=== PATIENT | male | born 1960 | race Caucasian/White ===

== ENCOUNTER 2017-01-08 10:28 | Inpatient (IN) ==
[~2017-01-08 10:28] MED LIST: LIDOCAINE 1% (10mg/ml) 10mL MDV ID ONE; LR 1,000 ML IV SCH
[2017-01-08 10:44] VITALS: BMI 29.0
[2017-01-08] MEDS ORDERED: HYDROMORPHONE 2 MG/ML INJECTION IVP PRN (11:13)
[2017-01-08] MEDS ORDERED: LIDOCAINE 1% (10mg/ml) 2mL INJ PF SDV ID ONE (11:53)
[2017-01-08] MEDS ORDERED: LACRI-LUBE EYE OINT 3.5gm ONE (11:55)
--- NOTE | 2017-01-08 12:05 | Anesthesia Preoperative Report ---
Anesthesia Preoperative Record - Date and Time Date: 01/08/17 Preoperative Diagnosis: Bronchoscopy R84.6 Proposed Procedure: Bronchoscopy with Bx NPO Since Date: 01/08/17 NPO Since Time: 12:02 Allergies/Adverse Reactions: Allergies Allergy/AdvReac Type Severity Reaction Status Date / Time Penicillins Allergy Severe "ALMOST Verified 01/08/17 11:30 KILLED ME CHILD" - Vital Signs Vital Signs: Temperature 98.8 F 01/08/17 10:40 Pulse Rate 103 H 01/08/17 11:37 Respiratory Rate 14 01/08/17 10:40 Blood Pressure 114/66 01/08/17 10:40 Pulse Oximetry 91 01/08/17 10:40 Oxygen Delivery Method Room Air Height and Weight: Height 5 ft 8.5 in Weight 87.8 kg Body Mass Index 29.0 - Medications Inpatient Medications: Current Medications Hydromorphone HCl (Dilaudid) 0.5 mg IVP O PRN PRN Reason: Pain Last Admin: 01/08/17 11:18 Dose: 0.5 mg Lactated Ringer's (Lactated Ringers) 1,000 mls @ 50 mls/hr IV .Q20H RUSSEL Last Admin: 01/08/17 11:10 Dose: 50 mls/hr Lidocaine HCl (Xylocaine-Mpf 1% Vial) 1 mg ID O ONE Stop: 01/08/17 11:54 Last Admin: 01/08/17 11:57 Dose: 1 mg Home Medications: Home Medications Medication Instructions Recorded Confirmed Type amitriptyline 50 mg tablet 75 mg PO HS #0 12/31/16 01/08/17 History omeprazole 20 mg capsule,delayed 20 mg PO DAILY cap 12/31/16 01/08/17 History release oxycodone 5 mg tablet 5 - 15 mg PO Q6H PRN tab 12/31/16 01/08/17 History zolpidem 5 mg tablet 5 mg PO HS 12/31/16 01/08/17 History methadone 10 mg/mL oral concentrate 10 mg PO Q6H PRN 01/07/17 01/08/17 History Is Patient on Beta Greta?: No - Medical History Respiratory: Reports: Orthopnea, Other (Left lung collapse 12/22) Cardiovascular: Reports: Hypertension Gastrointestional: Reports: Hepatitis (HEP-C), Cirrhosis (ETOH), Gastroesophageal Reflux Disease (well controlled with meds) Neuro/Musculoskeletal: Reports: Back Problems (throughout neck and back chronic pain) Renal/Endocrine: DENIES: Diabetes Mellitus Type 1, Diabetes Mellitus Type 2, Renal Failure, Dialysis, Thyroid Disease, Weight Loss, Weight Gain, Other Other History: DENIES: Anesthesia Reactions, Now, Blood Transfusions, Chemotherapy , Cancer, Hemophilia, Malignant Hyperthermia, Sickle Cell Disease, Other - Surgical History Respiratory Surgery/Treatments: Reports: Chest Surgery (US guided Thoracentesis) GI Surgery/Treatments: Reports: Other (LIVER BX) Musculoskeletal Surgery/Tx: Reports: Other (R ARM below ELBOW AMPUTATION) Anesthesia Reactions: None Hx Family Anesthesia Reaction: No History of Motion Sickness: No - Social History Smoking Status: Current every day smoker packs per day: 1 (1PPD x 40yrs. down to about 4-5 ciggs/day) Second Hand Exposure: Yes Substance Use Type: former substance user, opiates (methadone/oxycodone chronic pain.) - Pertinent Findings EKG Rhythm: Sinus Tachycardia - Physical Exam Respiratory Exam: Present: wheezing (left lower lobe), rales (Right lung clears with coughing), decreased breath sounds-L (throughout) Cardiovascular Exam: Present: regular rate and rhythm, no murmur - Airway Assessment Mallampati Score: II TMD: 3 Fingerbreadths Neck Extension: good Teeth: upper dentures (unable to remove. discussed possibility of dental damage with laryngoscopy), lower dentures Overall Assessment: may be difficult mask vent (bearded) - ASA ASA Score: 3 - Plan Anesthesia: General Inhalation Gases - Discussion Discussion: Discussed risks/options/alternatives of anesthesia and questions answered. Patient consents. Nursing pain assessment noted. Emphasis placed on risk of remaining on ventilator after procedure due to poor lung fcn currently. Pt verbalizes understanding and agrees to proceed with prescribed plan. Present for Discussion: spouse Attestation Statement: Prior to the delivery of any anesthetic medication, I examined the patient, developed the plan, obtained the patient's consent and discussed the risk and benefits of the procedure with the patient/guardian. - Additional Information Seen by Anesthesia: Yes
[2017-01-08] MEDS ORDERED: MIDAZOLAM 2mg/2ml INJECTION IVP ONE (12:08)
[2017-01-08] MEDS ORDERED: FentaNYL 100 MCG/2 ML INJECTION IVP PRN (12:25)
[2017-01-08] MEDS ORDERED: ONDANSETRON 4 MG/2 ML INJECTION ONE (13:07)
[2017-01-08] MEDS ORDERED: ROCURONIUM 50 MG/5 ML INJECTION IVP ONE (13:07)
[2017-01-08] MEDS ORDERED: PROPOFOL 20 ML ONE (13:07)
[2017-01-08] MEDS ORDERED: GLYCOPYRROLATE 0.4 MG/2 ML INJECTION ONE (13:32)
--- NOTE | 2017-01-08 13:50 | General Surgery Procedure Note ---
Date of Procedure: 01/08/17 Surgeon: Kelley Sales Representative Education Courses: Kelley Postoperative Diagnosis: Malignant left pleural effusion Procedure: Flexible bronchoscopy with washings and biopsies. Estimated Blood Loss: See Anesthesia Record.
--- NOTE | 2017-01-08 13:53 | Discharge Instructions ---
Discharge Plan - Med Rec/Dispo Prescriptions: Continue lisinopril 20 mg-hydrochlorothiazide 12.5 mg tablet 1 tab PO .qd #90 tab potassium chloride ER 10 mEq tablet,extended release 10 meq PO .qd #90 tab amitriptyline 50 mg tablet 75 mg PO HS #0 omeprazole 20 mg capsule,delayed release 20 mg PO DAILY cap zolpidem 5 mg tablet 5 mg PO HS oxycodone 5 mg tablet 5 - 15 mg PO Q6H PRN tab PRN Reason: pain No Action methadone 10 mg/mL oral concentrate 10 mg PO Q6H PRN PRN Reason: withdrawal symptoms
--- NOTE | 2017-01-08 15:31 | Anesthesia Postoperative Note ---
- Date and Time Date: 01/08/17 Time: 15:28 - Status Patient Participated in Evaluation: Patient Participated in Person Vital Signs: Temperature 99.0 F 01/08/17 14:25 Pulse Rate 98 01/08/17 15:10 Respiratory Rate 17 01/08/17 15:10 Blood Pressure 116/60 01/08/17 15:10 Pulse Oximetry 91 01/08/17 15:10 Oxygen Delivery Method Nasal Cannula Oxygen Flow Rate 3 Respiratory Function: Airway Patent Cardiovascular Function: Regular Pulse EKG Rhythm: Normal Sinus Rhythm Mental Status: Alert and Oriented Pain Intensity: 2 (headache) Unable to Assess Pain Due to: Patient Sleeping Hydration: Taking PO Fluids Complications During Recover: None Apparent - Follow-Up Instructions Instructions: Per Surgeon
[2017-01-08] MEDS ORDERED: ONDANSETRON 4 MG/2 ML INJECTION IVP PRN (16:41)
[2017-01-08] MEDS: LR 1,000 ML IV SCH ×2 (16:45→17:30)
[2017-01-08] MEDS: Oxycodone *IR* 5 MG TABLET PO PRN ×3 (17:12→21:43)
[2017-01-08] MEDS: LISINOPRIL/HCTZ 20/12.5 MG TABLET PO SCH (17:43)
[2017-01-08] MEDS: ALBUTEROL 2.5mg/3ml (0.083%) NEB AEROSOL PRN (19:33)
[2017-01-08] MEDS: ZOLPIDEM 5 MG TABLET PO SCH (21:43)
[2017-01-08] MEDS: AMITRIPTYLINE 50 MG TABLET PO SCH (21:44)
[2017-01-09] MEDS: ALBUTEROL 2.5mg/3ml (0.083%) NEB AEROSOL PRN ×2 (07:10→11:02)
[2017-01-09] MEDS: MORPHINE SULFATE 10 MG SYRINGE IVP PRN ×6 (07:18→20:26)
[2017-01-09] MEDS ORDERED: ALBUTEROL/IPRATROPIUM 2.5mg-0.5mg/3ml NEB IPPB PRN (07:39)
[2017-01-09] MEDS: OMEPRAZOLE 20 MG CAPSULE PO SCH (08:55)
[2017-01-09] MEDS: LISINOPRIL/HCTZ 20/12.5 MG TABLET PO SCH (08:56)
--- NOTE | 2017-01-09 09:07 | Operative Note ---
DATE OF OPERATION 01/08/2017 PREOPERATIVE DIAGNOSES 1. Malignant left pleural effusion with atypical cells present highly suspicious for non-small cell carcinoma. 2. Left upper lobe collapse which could be due to an obscured left hilar mass or endobronchial mass lesion demonstrated on 12/31/2016 CT scan of the chest. POSTOPERATIVE DIAGNOSES 1. Malignant left pleural effusion with atypical cells present highly suspicious for non-small cell carcinoma. 2. Left upper lobe collapse which could be due to an obscured left hilar mass or endobronchial mass lesion demonstrated on 12/31/2016 CT scan of the chest. OPERATION Flexible bronchoscopy with washings and biopsies. SURGEON Willard Benson MD ANESTHESIA General ASA CLASS 3 FINDINGS The distal trachea appeared normal. The john appeared normal. The right- sided bronchial tree appeared normal. There was severe narrowing of the left upper lobe bronchus just beyond the left upper lobe bronchial orifice. There was no obvious exophytic tumor lesion at this area. There was narrowing of the left upper lobe bronchial orifice and some nodularity of the mucosa but no obvious exophytic endobronchial tumor lesion. There also appeared to be some narrowing at the left lower lobe bronchial segments just beyond the left lower lobe bronchial orifice. There was no obvious exophytic endobronchial tumor lesion at the left lower lobe. DESCRIPTION OF OPERATION The patient was brought to the cystoscopy room. The patient was placed in supine position on the operating table in the cystoscopy room. General anesthesia was satisfactorily induced. The patient was intubated with endotracheal intubation by the nurse regulatory affairs manager. An adapter was placed at the end of the endotracheal tube to allow the flexible bronchoscope to pass through the straight upper part while anesthesia was being administered to the patient through a side port. The Olympus flexible bronchoscope was used. The bronchoscope was introduced into the endotracheal tube. The distal trachea was examined. The john was examined. The right-sided bronchial tree was examined. The left-sided bronchial tree was then examined. The endoscopic biopsy forceps was used to obtain biopsies of mucosa at the left upper lobe. The endoscopic biopsy specimens were submitted for study by the pathologist. Washings were then performed at the left upper lobe. Sterile normal saline was instilled into the left upper lobe and then aspirated back by gentle suction to provide washing specimens. The endoscopic biopsy forceps was then used to obtain biopsies of mucosa at the left lower lobe. The left lower lobe mucosal biopsy specimens were placed in a container and submitted for study by the pathologist. Bronchial washings were then performed at the left lower lobe. Sterile normal saline was instilled into the left lower lobe and then aspirated back by gentle suction to provide washing specimens. All the washing specimens were submitted to the pathologist for cytology studies. There was minimal bleeding during all these biopsies. Hemostasis was satisfactory at all the biopsies. The right-sided bronchial tree was again examined and all secretions and mucus and washing fluid was aspirated from the right-sided bronchial tree. The flexible bronchoscope was withdrawn out through the endotracheal tube and removed from the patient. The patient tolerated the operation well. The patient was transferred from the operating room to the recovery room in satisfactory condition. CRISTINE
[2017-01-09] MEDS: ALBUTEROL/IPRATROPIUM 2.5mg-0.5mg/3ml NEB IPPB SCH ×4 (11:02→20:58)
[2017-01-09] MEDS: LR 1,000 ML IV SCH ×3 (13:09→20:36)
--- NOTE | 2017-01-09 13:36 | Anesthesia Preoperative Report ---
Anesthesia Preoperative Record - Date and Time Date: 01/09/17 Preoperative Diagnosis: Bronchoscopy R84.6 NPO Since Date: 01/08/17 NPO Since Time: 00:00 Allergies/Adverse Reactions: Allergies Allergy/AdvReac Type Severity Reaction Status Date / Time Penicillins Allergy Severe "ALMOST Verified 01/08/17 11:30 KILLED ME CHILD" - Vital Signs Vital Signs: Temperature 98.7 F 01/09/17 13:08 Pulse Rate 99 01/09/17 13:08 Respiratory Rate 18 01/09/17 13:08 Blood Pressure 107/90 H 01/09/17 13:08 Pulse Oximetry 93 01/09/17 13:08 Oxygen Delivery Method Nasal Cannula Oxygen Flow Rate 6 Fraction of Inspired Oxygen 2 Height and Weight: Height 1.74 m Weight 87.8 kg Body Mass Index 29.0 - Medications Inpatient Medications: Current Medications Albuterol Sulfate (Proventil Neb (0.083%)) 2.5 mg AEROSOL Q4H PRN PRN Reason: Shortness of air/wheezing Last Admin: 01/09/17 11:02 Dose: 2.5 mg Albuterol/Ipratropium (Duoneb) 3 ml IPPB Q4HR [facility] Last Admin: 01/09/17 11:02 Dose: 3 ml Albuterol/Ipratropium (Duoneb) 3 ml IPPB PRN PRN Amitriptyline HCl (Elavil) 75 mg PO HS [facility] Last Admin: 01/08/17 21:44 Dose: 75 mg Lisinopril/HCTZ (Prinzide 20/12.5) 1 tab PO DAILY [facility] Last Admin: 01/09/17 08:56 Dose: Not Given Lactated Ringer's (Lactated Ringers) 1,000 mls @ 50 mls/hr IV .Q20H [facility] Last Admin: 01/09/17 13:09 Dose: Not Given Lactated Ringer's (Lactated Ringers) 1,000 mls @ 50 mls/hr IV .Q20H [facility] Last Admin: 01/09/17 13:10 Dose: 50 mls/hr Morphine Sulfate (Morphine Sulfate Inj) 2 - 5 mg IVP Q1H PRN PRN Reason: Pain Last Admin: 01/09/17 12:21 Dose: 3 mg Omeprazole (Prilosec) 20 mg PO DAILY [facility] Last Admin: 01/09/17 08:55 Dose: Not Given Ondansetron HCl (Zofran) 4 - 8 mg IVP Q6H PRN PRN Reason: Nausea &/or vomiting Oxycodone HCl (Roxicodone *Ir*) 5 - 10 mg PO Q3H PRN PRN Reason: Pain Last Admin: 01/08/17 21:43 Dose: 5 mg Potassium Chloride (K-Dur) 10 meq PO WB [facility] Last Admin: 01/09/17 08:55 Dose: Not Given Zolpidem Tartrate (Ambien) 5 mg PO HS [facility] Last Admin: 01/08/17 21:43 Dose: 5 mg Home Medications: Home Medications Medication Instructions Recorded Confirmed Type amitriptyline 50 mg tablet 75 mg PO HS #0 12/31/16 01/08/17 History omeprazole 20 mg capsule,delayed 20 mg PO DAILY cap 12/31/16 01/08/17 History release oxycodone 5 mg tablet 5 - 15 mg PO Q6H PRN tab 12/31/16 01/08/17 History zolpidem 5 mg tablet 5 mg PO HS 12/31/16 01/08/17 History methadone 10 mg/mL oral concentrate 10 mg PO Q6H PRN 01/07/17 01/08/17 History Is Patient on Beta Greta?: No - Medical History Respiratory: Reports: Orthopnea, Other (left lung collapse 12/22) Cardiovascular: Reports: Hypertension Gastrointestional: Reports: Hepatitis (Hep C, Cirrhosis ), Gastroesophageal Reflux Disease (controlled with meds) Neuro/Musculoskeletal: Reports: Back Problems (throughout neck and back, chronic ) - Surgical History Respiratory Surgery/Treatments: Reports: Chest Surgery (US guided Thoracentesis) GI Surgery/Treatments: Reports: Other (LIVER BX) Surgery/Treatment: DENIES: Dialysis Musculoskeletal Surgery/Tx: Reports: Other (R ARM below ELBOW AMPUTATION) Anesthesia Reactions: None Hx Family Anesthesia Reaction: No History of Motion Sickness: No - Social History Smoking Status: Current every day smoker Hx Chewing Tobacco Use: No Second Hand Exposure: Yes Substance Use Type: former substance user, opiates (methadone/oxycodone chronic pain.) - Pertinent Findings EKG Rhythm: Normal Sinus Rhythm - Physical Exam Respiratory Exam: Present: wheezing (left lower lobe), rales (Right lung clears with coughing), decreased breath sounds-L (throughout) Cardiovascular Exam: Present: regular rate and rhythm, no murmur - Airway Assessment Mallampati Score: II TMD: 3 Fingerbreadths Neck Extension: good Teeth: upper dentures (unable to remove. discussed possibility of dental damage with laryngoscopy), lower dentures Overall Assessment: may be difficult mask vent (bearded) - ASA ASA Score: 3 - Plan Anesthesia: General TIVA, General Inhalation Gases - Discussion Discussion: Discussed risks/options/alternatives of anesthesia and questions answered. Patient consents. Nursing pain assessment noted. Present for Discussion: spouse, family member Attestation Statement: Prior to the delivery of any anesthetic medication, I examined the patient, developed the plan, obtained the patient's consent and discussed the risk and benefits of the procedure with the patient/guardian. - Additional Information Seen by Anesthesia: Yes
[2017-01-09] MEDS ORDERED: FentaNYL 100 MCG/2 ML INJECTION ONE (13:46)
[2017-01-09] MEDS ORDERED: MIDAZOLAM 2mg/2ml INJECTION ONE (13:47)
[2017-01-09] MEDS ORDERED: KETAMINE 500 MG/10 ML INJECTION ONE (13:47)
[2017-01-09] MEDS ORDERED: PROPOFOL 500 MG/50 ML VIAL IV ONE (13:47)
[2017-01-09] MEDS ORDERED: SALINE FLUSH *Sterile* 10 ML SYRINGE IV ONE (14:27)
[2017-01-09] MEDS ORDERED: BUPIVACAINE 0.25% (2.5mg/ml) PF 30ml INJECTION SQ ONE (14:28)
[2017-01-09] MEDS ORDERED: CLINDAMYCIN PB 600 MG/50 ML BAG IV SCH (14:30)
[2017-01-09] MEDS ORDERED: LIDOCAINE 1% (10mg/ml) 5ml PF SDV INFIL ONE (14:46)
--- NOTE | 2017-01-09 16:04 | Ultrasound Report ---
Indication: LEFT PLEURAL EFF PROCEDURE: US thoracentesis Encounter: Initial Comparison: January 01, 2017 Technique/findings/ Impression: Ultrasound guidance was used to assist Dr. Benson in performing a left-sided thoracentesis. Preprocedure imaging shows a large left pleural effusion. .
[2017-01-09] MEDS ORDERED: PROPOFOL 20 ML ONE (16:08)
[2017-01-09] MEDS ORDERED: BUPIVACAINE 0.25% (2.5mg/ml) PF 30ml INJECTION ONE (16:10)
--- NOTE | 2017-01-09 18:12 | Anesthesia Postoperative Note ---
- Date and Time Date: 01/09/17 Time: 18:10 - Status Patient Participated in Evaluation: Patient Participated in Person Vital Signs: Temperature 98.7 F 01/09/17 13:08 Pulse Rate 99 01/09/17 13:08 Respiratory Rate 20 01/09/17 17:35 Blood Pressure 107/90 H 01/09/17 13:08 Pulse Oximetry 93 01/09/17 13:08 Oxygen Delivery Method Nasal Cannula Oxygen Flow Rate 6 Fraction of Inspired Oxygen 2 Respiratory Function: Airway Patent Cardiovascular Function: Regular Pulse Mental Status: Alert and Oriented Pain Intensity: 0 Hydration: IV Infusing Complications During Recover: None Apparent Post Anesthesia Care Notes: patient admitted to ICU per surgeon. Patient remained on O2/FM. - Follow-Up Instructions Instructions: Per Surgeon
[2017-01-09] MEDS: Oxycodone *IR* 5 MG TABLET PO PRN (18:56)
[2017-01-09] MEDS: AMITRIPTYLINE 50 MG TABLET PO SCH ×2 (20:28→21:41)
[2017-01-09] MEDS: ZOLPIDEM 5 MG TABLET PO SCH (21:40)
[2017-01-10] MEDS: Oxycodone *IR* 5 MG TABLET PO PRN ×6 (00:38→21:10)
[2017-01-10] MEDS: ALBUTEROL/IPRATROPIUM 2.5mg-0.5mg/3ml NEB IPPB SCH ×6 (01:02→20:43)
[2017-01-10] MEDS: MORPHINE SULFATE 10 MG SYRINGE IVP PRN ×6 (02:31→23:36)
[2017-01-10] MEDS: LISINOPRIL/HCTZ 20/12.5 MG TABLET PO SCH (10:50)
[2017-01-10] MEDS: OMEPRAZOLE 20 MG CAPSULE PO SCH (10:50)
--- NOTE | 2017-01-10 13:16 | Progress Note ---
DATE 01/10/2017 HISTORY When the patient did go to the recovery room following his operation yesterday, he did require oxygen administration at 15 liters per minute by nonrebreathing mask to maintain an adequate oxygen saturation level. The patient was given an IPPB with aerosol breathing treatment in the recovery room. The patient did cough up a large mucous plug with this breathing treatment and this did seem to improve his oxygenation after that. Because of the pulmonary status of the patient, he was transferred from the recovery room to the intensive care unit. The patient has continued to receive IPPB with albuterol breathing treatments in the intensive care unit. His oxygen has been able to be weaned down to 3 liters per minute by nasal cannula at this time. He currently does have an oxygen saturation level of 100% on oxygen at 3 liters per minute by nasal cannula. The patient is continuing to cough up large amounts of mucus. He continues to receive respiratory therapy treatments as often as every 4 hours. The patient is having quite a bit of pain at the bone metastasis at the left scapula and the bone metastasis at the right hip. He is using intravenous morphine and oxycodone both in an attempt to get pain control. He does rate his pain as 10/10. PHYSICAL EXAMINATION VITAL SIGNS: Pulse is 96. Respiratory rate is 12. Blood pressure is 123/57. Oxygen saturation is 100% on oxygen at 3 liters per minute by nasal cannula at this time. CHEST: The patient does have bilateral wheezing. Breath sounds are markedly diminished on the left side. The PleurX pleural catheter insertion site wound at the left chest wall looks good. PATHOLOGY REPORT I did receive a pathology report on the endobronchial biopsies performed at the left upper lobe and left lower lobe at flexible bronchoscopy on 01/08/2017. These endobronchial biopsies show moderately differentiated adenocarcinoma at both the left upper lobe and the left lower lobe. There is a diagnostic comment that the pattern of immunoperoxidase staining is suggestive of a primary neoplasm arising from the upper gastrointestinal tract. The pathologist does recommend clinical correlation to determine the origin of the neoplasm. TREATMENT I did attempt to aspirate some more fluid from the left pleural space today using the PleurX catheter. A vacuum canister was used and only a few milliliters of fluid were able to be aspirated from the left pleural space this morning. Quite a bit of fluid had been aspirated out of the left pleural space at the time of operation late yesterday afternoon using the wall suction applied to the PleurX catheter. Apparently, there has not been a lot of reaccumulation of fluid in the pleural space since late yesterday afternoon. IMPRESSION 1. Moderately differentiated adenocarcinoma demonstrated by endobronchial biopsies performed at the left upper lobe and left lower lobe at flexible bronchoscopy on 01/08/2017. The pattern of immunoperoxidase staining of these biopsies is suggestive of a primary neoplasm arising from the upper gastrointestinal tract. 2. Malignant left pleural effusion. 3. Left upper lobe collapse at the lung demonstrated on a 12/31/2016 CT scan of the chest. The CT scan of the chest does show occlusion of the left upper lobe bronchus with a cutoff sign. There is also compressive atelectasis of most of the left lung demonstrated by the 12/31/2016 CT scan. 4. Metastatic disease involving the anterior mediastinum, right lung, left scapula and right fourth posterior rib demonstrated on 12/31/2016 CT scan of the chest. 5. Small bilateral adrenal metastases and lytic bone lesions in the pelvis suspicious for metastases demonstrated on CT scan of the abdomen and pelvis on 01/01/2017. No obvious primary malignancy is seen in the abdomen or pelvis on the CT scan. 6. Severe pain at the left shoulder and right hip probably associated with the lytic bone metastases at the left scapula and right hip demonstrated on the CT scans. 7. Anemia. 8. Cirrhosis. 9. Hepatitis C liver disease. 10. Nicotine dependence. 11. Chronic pain syndrome. 12. Insomnia. 13. Gastroesophageal reflux disease. 14. Hypertension. PLAN 1. Continue respiratory therapy treatments for the patient with IPPB and bronchodilators and incentive spirometry and oxygen administration to support the pulmonary status of the patient. 2. Continue pain control with intravenous morphine at this time. 3. Esophagogastroduodenoscopy to look for any upper gastrointestinal tract primary source for the moderately differentiated adenocarcinoma. The pattern of immunoperoxidase staining on endobronchial biopsies at the left upper lobe and left lower lobe as well as immunoperoxidase staining on the previous pleural fluid specimen from last week both suggest a primary neoplasm arising from the upper gastrointestinal tract. MTDD
[2017-01-10] MEDS: LR 1,000 ML IV SCH (16:36)
[2017-01-10] MEDS: ALBUTEROL 2.5mg/3ml (0.083%) NEB AEROSOL PRN (20:44)
[2017-01-10] MEDS: AMITRIPTYLINE 50 MG TABLET PO SCH (21:55)
[2017-01-10] MEDS: ZOLPIDEM 5 MG TABLET PO SCH (21:55)
[2017-01-11] MEDS: ALBUTEROL/IPRATROPIUM 2.5mg-0.5mg/3ml NEB IPPB SCH ×6 (00:13→21:21)
[2017-01-11] MEDS: ALBUTEROL 2.5mg/3ml (0.083%) NEB AEROSOL PRN ×3 (00:14→21:21)
[2017-01-11] MEDS: Oxycodone *IR* 5 MG TABLET PO PRN ×2 (01:44→19:54)
[2017-01-11] MEDS: MORPHINE SULFATE 10 MG SYRINGE IVP PRN ×7 (05:41→22:31)
[2017-01-11] MEDS: LR 1,000 ML IV SCH (07:29)
[2017-01-11] MEDS: OMEPRAZOLE 20 MG CAPSULE PO SCH (08:25)
[2017-01-11] MEDS: LISINOPRIL/HCTZ 20/12.5 MG TABLET PO SCH (08:25)
[2017-01-11] MEDS: NS 1,000 ML IV SCH (11:50)
--- NOTE | 2017-01-11 11:55 | Anesthesia Preoperative Report ---
Anesthesia Preoperative Record - Date and Time Date: 01/11/17 Preoperative Diagnosis: Bronchoscopy R84.6 NPO Since Date: 01/10/17 NPO Since Time: 00:00 Allergies/Adverse Reactions: Allergies Allergy/AdvReac Type Severity Reaction Status Date / Time Penicillins Allergy Severe "ALMOST Verified 01/08/17 11:30 KILLED ME CHILD" - Vital Signs Vital Signs: Temperature 98.1 F 01/11/17 08:05 Pulse Rate 97 01/11/17 09:15 Respiratory Rate 20 01/11/17 11:28 Blood Pressure 101/58 01/11/17 09:00 Pulse Oximetry 100 01/11/17 09:15 Oxygen Delivery Method Nasal Cannula Oxygen Flow Rate 4 Fraction of Inspired Oxygen 2 Height and Weight: Height 1.74 m Weight 84.4 kg Body Mass Index 29.0 - Medications Inpatient Medications: Current Medications Albuterol Sulfate (Proventil Neb (0.083%)) 2.5 mg AEROSOL Q4H PRN PRN Reason: Shortness of air/wheezing Last Admin: 01/11/17 04:36 Dose: 2.5 mg Albuterol/Ipratropium (Duoneb) 3 ml IPPB Q4HR RUSSEL Last Admin: 01/11/17 11:28 Dose: 3 ml Albuterol/Ipratropium (Duoneb) 3 ml IPPB PRN PRN Amitriptyline HCl (Elavil) 75 mg PO HS [facility] Last Admin: 01/10/17 21:55 Dose: 75 mg Lisinopril/HCTZ (Prinzide 20/12.5) 1 tab PO DAILY [facility] Last Admin: 01/11/17 08:25 Dose: 1 tab Azithromycin 500 mg/ Sodium (Chloride) 250 mls @ 167 mls/hr IV DAILY [facility] Ceftriaxone Sodium 1 g/ Sodium (Chloride) 100 mls @ 200 mls/hr IV DAILY [facility] Sodium Chloride (Normal Saline) 1,000 mls @ 40 mls/hr IV .Q24H [facility] Morphine Sulfate (Morphine Sulfate Inj) 2 - 5 mg IVP Q1H PRN PRN Reason: Pain Last Admin: 01/11/17 11:36 Dose: 5 mg Omeprazole (Prilosec) 20 mg PO DAILY [facility] Last Admin: 01/11/17 08:25 Dose: 20 mg Ondansetron HCl (Zofran) 4 - 8 mg IVP Q6H PRN PRN Reason: Nausea &/or vomiting Oxycodone HCl (Roxicodone *Ir*) 5 - 10 mg PO Q3H PRN PRN Reason: Pain Last Admin: 01/11/17 01:44 Dose: 10 mg Potassium Chloride (K-Dur) 10 meq PO WB RUSSEL Last Admin: 01/10/17 10:50 Dose: 10 meq Zolpidem Tartrate (Ambien) 5 mg PO HS [facility] Last Admin: 01/10/17 21:55 Dose: 5 mg Home Medications: Home Medications Medication Instructions Recorded Confirmed Type amitriptyline 50 mg tablet 75 mg PO HS #0 12/31/16 01/08/17 History omeprazole 20 mg capsule,delayed 20 mg PO DAILY cap 12/31/16 01/08/17 History release oxycodone 5 mg tablet 5 - 15 mg PO Q6H PRN tab 12/31/16 01/08/17 History zolpidem 5 mg tablet 5 mg PO HS 12/31/16 01/08/17 History methadone 10 mg/mL oral concentrate 10 mg PO Q6H PRN 01/07/17 01/08/17 History Is Patient on Beta Greta?: No - Medical History Respiratory: Reports: Other (orthopnea, history of lung collapse. ) Cardiovascular: Reports: Hypertension Gastrointestional: Reports: Hepatitis (Hep C) Neuro/Musculoskeletal: Reports: Back Problems - Surgical History Respiratory Surgery/Treatments: Reports: Chest Surgery (US guided Thoracentesis) GI Surgery/Treatments: Reports: Other (LIVER BX) Surgery/Treatment: DENIES: Dialysis Musculoskeletal Surgery/Tx: Reports: Other (R ARM below ELBOW AMPUTATION) Hx Family Anesthesia Reaction: No History of Motion Sickness: No - Social History Smoking Status: Current every day smoker Hx Chewing Tobacco Use: No Second Hand Exposure: Yes Substance Use Type: former substance user, opiates (methadone/oxycodone chronic pain.) - Pertinent Findings Laboratory: CBC and BMP 01/11/17 08:56 01/11/17 08:56 BMP 01/11/17 08:56 Sodium 125 L Potassium 4.8 Chloride 87 L Carbon Dioxide 30 BUN 12.0 Creatinine 0.6 L Glucose 109 Calcium 9.2 EKG Rhythm: Normal Sinus Rhythm - Physical Exam Respiratory Exam: Present: wheezing (left lower lobe), rales (Right lung clears with coughing), decreased breath sounds-L (throughout) Cardiovascular Exam: Present: regular rate and rhythm, no murmur - Airway Assessment Mallampati Score: II TMD: 3 Fingerbreadths Neck Extension: good Teeth: upper dentures (unable to remove. discussed possibility of dental damage with laryngoscopy), lower dentures Overall Assessment: may be difficult mask vent (bearded) - ASA ASA Score: 3, E - Plan Anesthesia: General TIVA, General Inhalation Gases, MAC - Discussion Discussion: Discussed risks/options/alternatives of anesthesia and questions answered. Patient consents. Nursing pain assessment noted. Present for Discussion: spouse, family member Attestation Statement: Prior to the delivery of any anesthetic medication, I examined the patient, developed the plan, obtained the patient's consent and discussed the risk and benefits of the procedure with the patient/guardian.
[2017-01-11] MEDS ORDERED: FentaNYL 100 MCG/2 ML INJECTION ONE (11:59)
[2017-01-11] MEDS ORDERED: MIDAZOLAM 2mg/2ml INJECTION ONE (12:00)
[2017-01-11] MEDS ORDERED: KETAMINE 500 MG/10 ML INJECTION ONE (12:00)
--- NOTE | 2017-01-11 12:16 | General Surgery Procedure Note ---
Date of Procedure: 01/11/17 Surgeon: Kelley Postoperative Diagnosis: Metastatic adenocarcinoma of uncertain origin Procedure: EGD Estimated Blood Loss: See Anesthesia Record.
--- NOTE | 2017-01-11 12:56 | Anesthesia Postoperative Note ---
- Date and Time Date: 01/11/17 Time: 12:55 - Status Patient Participated in Evaluation: Patient Participated in Person Vital Signs: Temperature 98.4 F 01/11/17 12:43 Pulse Rate 101 H 01/11/17 12:40 Respiratory Rate 14 01/11/17 12:40 Blood Pressure 117/59 01/11/17 12:40 Pulse Oximetry 94 01/11/17 12:40 Oxygen Delivery Method Nasal Cannula Oxygen Flow Rate 4 Fraction of Inspired Oxygen 2 Respiratory Function: Airway Patent, Regular Respirations Cardiovascular Function: Regular Pulse Mental Status: Alert and Oriented Pain Intensity: 0 Hydration: IV Infusing Complications During Recover: None Apparent - Follow-Up Instructions Instructions: Per Surgeon
[2017-01-11] MEDS: AZITHROMYCIN IV 500 MG in NS 250ml 250 ML IV SCH (13:39)
[2017-01-11] MEDS: CEFTRIAXONE 1 G in NS 100 ML IV SCH (15:24)
[2017-01-11] MEDS ORDERED: BENZOCAINE 20% SPRAY 0.5 ML MM ONE ×2 (16:28→16:30)
[2017-01-11] MEDS ORDERED: LIDOCAINE VISCOUS 2% ORAL LIQUID 15ml PO ONE (16:28)
[2017-01-11] MEDS: AMITRIPTYLINE 50 MG TABLET PO SCH (22:24)
[2017-01-11] MEDS: ZOLPIDEM 5 MG TABLET PO SCH (22:24)
[2017-01-12] MEDS: Oxycodone *IR* 5 MG TABLET PO PRN ×6 (00:06→19:22)
[2017-01-12] MEDS: ALBUTEROL/IPRATROPIUM 2.5mg-0.5mg/3ml NEB IPPB SCH ×4 (00:51→11:53)
[2017-01-12] MEDS: MORPHINE SULFATE 10 MG SYRINGE IVP PRN (02:37)
[2017-01-12] MEDS: ALBUTEROL 2.5mg/3ml (0.083%) NEB AEROSOL PRN (04:50)
--- NOTE | 2017-01-12 07:22 | Progress Note ---
DATE 01/11/2017 HISTORY The patient remains in the intensive care unit at this time. The patient continues to have quite a bit of pain at the lytic metastasis at the left scapula and right hip. The patient continues to require intravenous morphine for pain control. The patient continues to cough up quite a bit of mucus out of his lungs. He continues to receive IPPB with bronchodilator treatments. Oxygen saturation is 100% with the patient receiving oxygen at 4 liters per minute by nasal cannula at this time. PHYSICAL EXAMINATION VITAL SIGNS: Pulse is 97. Respiratory rate is 14. Blood pressure is 101/58. Oxygen saturation is 100% on oxygen at 4 liters per minute by nasal cannula. CHEST: The patient has some bilateral wheezing. Breath sounds are decreased on the left side. LABORATORY DATA White blood cell count is 14,300. Hemoglobin is 9.3. Hematocrit is 28.6. Serum sodium is 125. Serum chloride is 87. Serum potassium is 4.8. Serum creatinine is 0.9. IMPRESSION 1. Moderately differentiated adenocarcinoma demonstrated by endobronchial biopsies performed at the left upper lobe and left lower lobe at flexible bronchoscopy on 01/08/2017. The pattern of the immunoperoxidase staining of these biopsies is suggestive of a primary neoplasm arising from the upper gastrointestinal tract. 2. Malignant left pleural effusion. 3. Left upper lobe collapse at the lung demonstrated on a 12/31/2016 CT scan of the chest. The CT scan of the chest does show occlusion of the left upper lobe bronchus with a cutoff sign. There is also compressive atelectasis at most of the left lung demonstrated by the 12/31/2016 CT scan. 4. Metastatic disease involving the anterior mediastinum, right lung, left scapula and right fourth posterior rib demonstrated on 12/31/2016 CT scan of the chest. 5. Small bilateral adrenal metastases and lytic bone lesions in the pelvis suspicious for metastases demonstrated on CT scan of the abdomen and pelvis on 01/01/2017. No obvious primary malignancy is seen in the abdomen and pelvis on the CT scan. 6. Severe pain at the left shoulder and right hip probably associated with the lytic bone metastases at the left scapula and right hip demonstrated on the CT scans. 7. Anemia. 8. Leukocytosis. 90. Hyponatremia. 10. Cirrhosis. 11. Hepatitis C liver disease. 12. Nicotine dependence. 13. Chronic pain syndrome. 14. Insomnia. 15. Gastroesophageal reflux disease. 16. Hypertension. PLAN 1. Attempt to perform esophagogastroduodenoscopy on the patient today to evaluate the patient for a primary neoplasm arising from the upper gastrointestinal tract as suggested by immunoperoxidase staining of the endobronchial biopsy specimens. 2. Continue respiratory therapy treatments with IPPB and bronchodilators and incentive spirometry and oxygen administration to support the pulmonary status of the patient. 3. Continue pain control with intravenous morphine. 4. Change intravenous fluids and restrict fluids to correct hyponatremia. 5. Check sputum culture and start antibiotics for possible pneumonia in the portion of the left lung which is obstructed and affected with atelectasis. The patient could have some postobstructive pneumonia at this area accounting for his leukocytosis. 6. The patient had been scheduled to see Dr. Ramey as an outpatient at his office in [place] on 01/12/2017 for an oncology consultation. We will probably have Dr. Ramey see the patient here in the hospital this week for an oncology consultation. CRISTINE
--- NOTE | 2017-01-12 08:07 | Operative Note ---
DATE OF OPERATION 01/11/2017 PREOPERATIVE DIAGNOSES 1. Moderately differentiated adenocarcinoma demonstrated by endobronchial biopsies performed at the left upper lobe and left lower lobe at flexible bronchoscopy on 01/08/2017. The pattern of immunoperoxidase staining of these biopsies is suggestive of a primary neoplasm arising from the upper gastrointestinal tract. 2. Malignant left pleural effusion with the cytology report showing clusters of atypical cells highly suspicious for non-small cell carcinoma, possible upper GI tract primary. 3. Metastatic disease involving the anterior mediastinum, right lung, left scapula and right fourth posterior rib demonstrated on 12/31/2016 CT scan of the chest. 4. Small bilateral adrenal metastases and lytic bone lesions in the pelvis suspicious for metastases demonstrated on a CT scan of the abdomen and pelvis on 01/01/2017. No obvious primary malignancy is seen in the abdomen or pelvis on the CT scan. POSTOPERATIVE DIAGNOSES 1. Moderately differentiated adenocarcinoma demonstrated by endobronchial biopsies performed at the left upper lobe and left lower lobe at flexible bronchoscopy on 01/08/2017. The pattern of immunoperoxidase staining of these biopsies is suggestive of a primary neoplasm arising from the upper gastrointestinal tract. 2. Malignant left pleural effusion with the cytology report showing clusters of atypical cells highly suspicious for non-small cell carcinoma, possible upper GI tract primary. 3. Metastatic disease involving the anterior mediastinum, right lung, left scapula and right fourth posterior rib demonstrated on 12/31/2016 CT scan of the chest. 4. Small bilateral adrenal metastases and lytic bone lesions in the pelvis suspicious for metastases demonstrated on a CT scan of the abdomen and pelvis on 01/01/2017. No obvious primary malignancy is seen in the abdomen or pelvis on the CT scan. 5. Retained solid food contents in the stomach at esophagogastroduodenoscopy today. OPERATION Esophagogastroduodenoscopy. SURGEON Dr. Benson [facility] [place] ASA CLASS 3 FINDINGS Mucosa at the esophagus appeared completely normal everywhere. No evidence of any primary neoplasm at the esophagus was present. Duodenal mucosa appeared normal everywhere. There was no evidence of any primary neoplasm at the duodenum. The gastric mucosa which was visualized all appeared normal. The patient did have quite a bit of solid retained food contents in the stomach. The patient had been NPO for over 12 hours before the procedure. This did prevent all of the gastric mucosa from being visualized. Mucosa around the gastroesophageal junction was normal. Mucosa around the pylorus was normal. Most of the rest of the gastric mucosa was able to be visualized but not all of it was able to be visualized because of the retained solid food contents in the stomach. The pylorus was wide open. There was no evidence of any mechanical gastric outlet obstruction. There were no retained food particles in the duodenum. This did suggest that there was not a more distal source of obstruction. The presence of the solid food in the stomach with the wide open pylorus suggested that this food was retained due to more of a gastroparesis. No primary neoplasm of the upper gastrointestinal tract was visualized today.. DESCRIPTION OF OPERATION The patient was brought to one of the operating rooms. The patient was kept in his intensive care unit bed as he was brought into the operating room. He was kept in the intensive care unit bed throughout the procedure. Topical anesthesia was achieved at the oropharynx in the usual manner. The patient was placed in left lateral recumbent position in his intensive care unit bed in the operating room. The patient was premedicated with intravenous sedation medication administered by the nurse aviation electrical technician. The Olympus upper GI endoscope was used. The upper GI endoscope was introduced into the esophagus. The upper GI endoscope was advanced down through the esophagus and into the stomach. The upper GI endoscope was able to be advanced down through the stomach past all of the solid food down to the level of the pylorus. The tip of the upper GI endoscope was advanced through the pylorus and advanced down through the duodenum. The tip was advanced down through the duodenum beyond the level of the duodenal bulb. The upper GI endoscope was then withdrawn back out through the duodenum and through the pylorus back into the stomach. The stomach was examined further. The upper GI endoscope was retroflexed and the gastroesophageal junction was viewed from below. The upper GI endoscope was straightened out. As much of the gastric mucosa as possible was visualized. The upper GI endoscope was then withdrawn out through the stomach and esophagus and removed from the patient. The findings throughout the procedure were as described above. The patient did continue to receive intravenous sedation medication administered by the nurse aviation electrical technician throughout the operation. The patient did tolerate the operation well. The patient was transferred from the operating room back to the intensive care unit in stable condition. CRISTINE
[2017-01-12] MEDS: CEFTRIAXONE 1 G in NS 100 ML IV SCH (09:36)
[2017-01-12] MEDS: LISINOPRIL/HCTZ 20/12.5 MG TABLET PO SCH (09:36)
[2017-01-12] MEDS: OMEPRAZOLE 20 MG CAPSULE PO SCH (09:36)
--- NOTE | 2017-01-12 10:26 | Operative Note ---
DATE OF OPERATION 01/09/2017 PREOPERATIVE DIAGNOSES 1. Malignant left pleural effusion with atypical cells present highly suspicious for non-small cell carcinoma. 2. 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 POSTOPERATIVE DIAGNOSES 1. Malignant left pleural effusion with atypical cells present highly suspicious for non-small cell carcinoma. 2. 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 OPERATION 1. Placement of left PleurX pleural catheter. 2. Implantation of PowerPort vascular access device. SURGEON Dr. Benson [facility] CLASS 3 DESCRIPTION OF OPERATION The patient was placed in Evans's position on the operating room table. The ultrasound machine was used by the golf technician to examine the left pleural cavity. The left pleural effusion was visualized with examination with the ultrasound machine. The ultrasound machine was used to select a site for placement of the left PleurX pleural catheter. A site for guidewire insertion was selected. This site was at the posterior axillary line at about the 6th or 7th intercostal space. This area was marked on the skin with a skin marker pen. The patient was premedicated with intravenous sedation medication administered by the nurse tree shear operator. The left lateral chest wall was prepped with ChloraPrep solution. The patient was kept in Evans's position. Sterile drapes were placed. The guidewire insertion site incision was marked on the skin with a skin marker pen. The guidewire insertion site incision was infiltrated with bupivacaine 0.25% without epinephrine to achieve local anesthesia. A 2 cm long transversely oriented incision was made at the guidewire insertion site incision at the posterior axillary line at about the 6th or 7th intercostal space. This incision was extended down through the subcutaneous tissue. The subcutaneous tissue, intercostal muscles and parietal pleura were all infiltrated with additional local anesthetic at this time. A needle and an introducer catheter were inserted through the chest wall at the guidewire insertion site incision. The needle and introducer catheter were inserted over the superior margin of a rib. Pleural effusion fluid was able to be aspirated out through the needle and introducer catheter with a syringe. The metal needle was removed. The introducer catheter was left in place. A guidewire was then inserted through the introducer catheter into the left pleural space. The guidewire was able to be inserted easily and without any resistance. The introducer catheter was then removed. The guidewire was left in place at the guidewire insertion site incision. A second short incision was then made inferior and anterior to the guidewire insertion site. This was the catheter exit site incision. This area was first infiltrated with local anesthetic. A 1-cm long incision was made at the catheter exit site. This was in a location 6 cm anterior and inferior to the guidewire insertion site incision. Subcutaneous tissue between the guidewire insertion site incision and the catheter exit site incision was infiltrated with 1% Xylocaine without epinephrine. The fenestrated end of the catheter was then attached to a tunneler. The tunneler and the fenestrated end of the catheter were then passed subcutaneously from the catheter exit site incision to the guidewire insertion site incision. The tunneler and the fenestrated end of the catheter were brought out through the guidewire insertion site incision. This was continued until the polyester cuff of the catheter was in a position within the tunnel between the catheter exit site incision and the guidewire insertion site incision. The tunneler was disconnected from the catheter. The insertion site was then dilated over the guidewire using a #12-[place] dilator. The 16-[place] peel-away introducer sheath with dilator was then passed over the guidewire into the pleural cavity. The guidewire and the dilator were removed as a unit from the 16-[place] peel-away introducer sheath. The 16-[place] peel-away introducer sheath was left in place. The fenestrated end of the PleurX pleural catheter was introduced into the peel-away sheath and introduced into the left pleural cavity. The peel-away sheath was removed, keeping the pleural catheter in place. It was made certain during this time that all fenestrations of the pleural catheter were well within the pleural cavity. The polyester cuff was shifted even closer to the guidewire insertion site incision at this time to make sure that all of the fenestrations of the pleural catheter were within the pleural cavity. This did place the final position of the polyester cuff in this particular case, closer to the guidewire insertion site incision than the catheter exit site incision. The guidewire insertion site incision was then closed. Subcutaneous tissue at the guidewire insertion site incision was closed with a series of simple interrupted stitches using 3-0 Vicryl suture. Skin margins at the guidewire insertion site incision were then reapproximated with a series of interrupted subcuticular stitches using 4-0 Vicryl suture. The catheter exit site was closed around the catheter with 2-0 silk suture. The 2-0 silk suture was then used to secure the catheter to the skin adjacent to the catheter exit site. Dermabond was applied over the guidewire insertion site incision which had been closed with the 4-0 Vicryl subcuticular stitches. Wall suction was then connected to the PleurX pleural catheter and some additional left pleural effusion fluid from the left pleural cavity was removed with wall suction. A foam dressing was then placed on the skin beneath the PleurX pleural catheter. A 4 x 4 gauze was placed over the PleurX pleural catheter and the foam dressing. A Tegaderm dressing was then applied over the PleurX pleural catheter dressings. The patient did continue to receive intravenous sedation medication administered by the nurse tree shear operator throughout this procedure as needed to maintain patient comfort. The drapes which had been placed for this procedure were then removed. The patient was then changed from Evans's position to supine position on the operating table. The patient did continue to receive intravenous sedation medication administered by the nurse tree shear operator. The implantation of the PowerPort vascular access device portion of the operation was then performed. The suprasternal notch area, the left infraclavicular area, the left supraclavicular area, the left side of the neck, the left shoulder, the right supraclavicular area, the right infraclavicular area, the right side of the neck and the right shoulder were all prepped and draped in routine sterile fashion. An ultrasound device was used to examine the right carotid artery and right internal jugular vein. Bupivacaine 0.25% without epinephrine was infiltrated into the skin and subcutaneous tissue at the right side of the neck. A small incision was made at this area. A percutaneous venipuncture of the right internal jugular vein was then performed with ultrasound guidance. There was a good return of dark red nonpulsatile blood. A flexible guidewire was passed through the needle and through the right internal jugular vein. The position of the flexible guidewire within the superior vena cava was confirmed with fluoroscopy with the C-arm at this time. Additional bupivacaine was infiltrated at the site where the flexible guidewire entered the skin at the right side of the neck. A small pocket was dissected out beneath the platysma muscle and fascia at the small incision at the right side of the neck. Bupivacaine was infiltrated into the skin and subcutaneous tissue at an obliquely oriented incision at the right infraclavicular area. An obliquely oriented incision was made at this area and extended down through the underlying tissue. Bupivacaine was infiltrated into tissue at this area. A subcutaneous pocket was then made beneath the inferior margin of the right infraclavicular incision. The implantable port was flushed with heparinized saline solution. The port was placed into the pocket which had been created for it between the pectoralis fascia and subcutaneous tissue at the right infraclavicular area. Two simple interrupted stitches of 0 Prolene suture were placed at each of the four corner suture rings to secure the port down to the underlying pectoralis fascia. The catheter was flushed with heparinized saline solution. A hemostat was inserted at the right infraclavicular wound and passed over the clavicle and beneath the subcutaneous tissue to come out at the incision at the right side of the neck. The hemostat was used to grasp the end of the catheter and pull it through the tunnel from the incision at the right side of the neck down to the incision at the right infraclavicular area. A vessel dilator and sheath introducer were then advanced over the flexible guidewire into the right internal jugular vein. The vessel dilator and guidewire were then removed from the peel-away sheath. The end of the catheter was introduced into the peel-away sheath. The catheter easily passed through the peel-away sheath down into the superior vena cava. The peel-away sheath was removed. The position of the catheter was checked with the C-arm. The position of the catheter was adjusted until the tip of the catheter was in the superior vena cava near the junction of the superior vena cava and right atrium. Excess catheter at the distal end of the catheter was excised and discarded. The catheter was connected to the stem of the port at the right infraclavicular subcutaneous pocket. The catheter lock was advanced onto the stem of the port to lock the catheter in place on the stem of the port. With the catheter connected to the port, additional heparinized saline was injected through the port and through the catheter. The position of the catheter was again checked with the C-arm. The position of the catheter appeared be satisfactory at this time. Subcutaneous tissue was closed at the obliquely oriented incision at the right infraclavicular area in two layers with a continuous simple [id number] stitch using 3-0 Vicryl suture. Skin margins were then reapproximated at the obliquely oriented right infraclavicular incision with a continuous subcuticular stitch using 4-0 Vicryl suture. Skin margins were then reapproximated at the short incision at the right side of the neck with a series of interrupted subcuticular stitches using 4-0 Vicryl suture. Benzoin and 1/2-inch wide Steri-Strips were applied to the incisions at the right side of the neck and at the right infraclavicular area. Sterile dressings were applied to the incisions. The patient did continue to receive intravenous sedation medication administered by the nurse tree shear operator throughout the implantation of a PowerPort vascular access device portion of the procedure. The patient did appear to tolerate procedure well. The patient was transferred from the operating room to the recovery room in stable condition. CRISTINE
[2017-01-12] MEDS: AZITHROMYCIN IV 500 MG in NS 250ml 250 ML IV SCH (10:36)
[2017-01-12] MEDS: NS 1,000 ML IV SCH (14:45)
[2017-01-12] MEDS: ALBUTEROL/IPRATROPIUM 2.5mg-0.5mg/3ml NEB AEROSOL SCH ×3 (15:00→20:58)
--- NOTE | 2017-01-12 16:16 | Progress Note ---
DATE: 01/12/2017 HISTORY The patient did have intravenous fluids changed to normal saline at 40 cc/hour yesterday after consultation with the pharmacist to attempt to improve the hyponatremia. The patient was also started yesterday on treatment with azithromycin 500 mg IV daily and Rocephin 1 g IV daily for treatment of possible pneumonia at the left lung which could be causing the leukocytosis. The antibiotics were recommended by pharmacy. A sputum specimen was collected and submitted for culture yesterday. The pharmacy was consulted regarding choice of antibiotics. The patient remains in the intensive care unit today. He has been receiving intravenous morphine and oxycodone by mouth for treatment of pain at the left shoulder and right hip thought to be associated with metastases. The patient is somewhat drowsy due to the narcotics but is able to carry on a conversation. The patient continues to receive respiratory therapy treatments. He continues to have a productive cough. The patient refused IPPB with bronchodilator treatment. Treatment was therefore switched to aerosol with bronchodilator treatment with use of Acapella every 4 hours. The patient continues to receive oxygen administration. He remains on oxygen at 4 liters per minute by nasal cannula at this time. PHYSICAL EXAMINATION VITAL SIGNS: Temperature is 98.6 degrees oral. Pulse is 106. Respiratory rate is 19. Oxygen saturation is 98% on oxygen at 4 liters per minute by nasal cannula. CHEST: Breath sounds are decreased at the left chest. There is less wheezing at auscultation of the chest today than there was yesterday. The PowerPort vascular access implantation site at the right infraclavicular area looks good. LABORATORY DATA White blood cell count is 13,400. Hemoglobin is 9.4. Hematocrit is 28.9. Serum sodium is 127. Serum potassium is 4.8. Serum chloride is 86. Serum creatinine is 0.6. IMPRESSION 1. Moderately differentiated adenocarcinoma demonstrated by endobronchial biopsies performed at the left upper lobe and left lower lobe at flexible bronchoscopy on 01/08/2017. 2. Malignant left pleural effusion. 3. Left upper lobe collapse at the lung demonstrated on 12/31/2016 CT scan of the chest. The CT scan of the chest does show occlusion of the left upper lobe bronchus with a cutoff sign. There is also compressive atelectasis at most of the left lung demonstrated on the 12/31/2016 CT scan. 4. Metastatic disease involving the anterior mediastinum, right lung, left scapula and right fourth posterior rib demonstrated on 12/31/2016 CT scan of the chest. 5. Small bilateral adrenal metastases and lytic bone lesions in the pelvis suspicious for metastases demonstrated on CT scan of the abdomen and pelvis on 01/01/2017. No obvious primary malignancy is seen in the abdomen and pelvis on the CT scan. 6. Severe pain at the left shoulder and right hip probably associated with the lytic bone metastases at the left scapula and right hip demonstrated on CT scans. 7. Anemia which is stable. 8. Leukocytosis which is slightly improved today. 9. Hyponatremia which is slightly improved today. 10. Cirrhosis. 11. Hepatitis C liver disease. 12. Nicotine dependence. 13. Chronic pain syndrome. 14. Insomnia. 15. Gastroesophageal reflux disease. 16. Hypertension. PLAN 1. Continue pain control with intravenous morphine and oral oxycodone. 2. Continue respiratory therapy treatments to support the pulmonary status of the patient. 3. Await sputum culture results. 4. Continue antibiotics with intravenous Rocephin and azithromycin for treatment of possible pneumonia at the left lung which is obstructed and affected with atelectasis. 5. The patient had been scheduled to see Dr. Ramey as an outpatient at his office at [facility] for oncology consultation. We have contacted Dr. Ramey to let him know that the patient is hospitalized at this time. We have sent reports to Dr. Ramey to inform him about the current status of the patient. We will plan to have Dr. Ramey see the patient at the [facility] for oncology consultation this week. CRISTINE
[2017-01-12] MEDS: KETOROLAC 30 MG/ML INJECTION IVP PRN (21:07)
[2017-01-12] MEDS: AMITRIPTYLINE 50 MG TABLET PO SCH (21:41)
[2017-01-12] MEDS: ZOLPIDEM 5 MG TABLET PO SCH (22:56)
[2017-01-12] MEDS: HYDROMORPHONE 2 MG/ML INJECTION IVP PRN (23:10)
[2017-01-13] MEDS: HYDROMORPHONE 2 MG/ML INJECTION IVP PRN ×5 (02:27→17:33)
[2017-01-13] MEDS: ALBUTEROL/IPRATROPIUM 2.5mg-0.5mg/3ml NEB AEROSOL SCH ×6 (02:39→23:46)
[2017-01-13] MEDS: KETOROLAC 30 MG/ML INJECTION IVP PRN ×4 (04:36→23:54)
[2017-01-13] MEDS ORDERED: DiltiaZEM 25 MG/5 ML INJECTION IVP ONE (07:05)
[2017-01-13] MEDS: METHADONE 10 MG TABLET PO PRN ×3 (07:41→20:12)
[2017-01-13] MEDS: CEFTRIAXONE 1 G in NS 100 ML IV SCH ×2 (07:47→09:21)
[2017-01-13] MEDS: LISINOPRIL/HCTZ 20/12.5 MG TABLET PO SCH ×2 (07:56→09:20)
[2017-01-13] MEDS: OMEPRAZOLE 20 MG CAPSULE PO SCH ×2 (07:57→09:20)
[2017-01-13] MEDS ORDERED: ADENOSINE 6mg/2ml INJECTION IVP ONE (08:45)
[2017-01-13] MEDS ORDERED: METOPROLOL 5mg/5ml INJECTION IVP ONE (08:51)
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
[2017-01-13] MEDS: AZITHROMYCIN IV 500 MG in NS 250ml 250 ML IV SCH (09:24)
--- NOTE | 2017-01-13 10:24 | XRay Report ---
Indication: arrhythmia XR chest 1V: Comparison: 01/09/2017 Technique: Single view chest Findings: Patient continues to show extensive opacification of the left lung with an elevated left diaphragm. Increased interstitial markings present in the right chest. Heart size seems similar to the previous study although left heart border is poorly imaged. Patient shows a right-sided Port-A-Cath in place. Impression: 1. Since previous study little indication of change with extensive infiltrate throughout the left chest and on the right where the patient shows extensive chronic lung changes. 2. Stable heart size. .
[2017-01-13] MEDS: SOTALOL 80 MG TABLET PO SCH ×2 (11:19→17:34)
[2017-01-13] MEDS: NS 1,000 ML IV SCH ×2 (16:18→19:14)
--- NOTE | 2017-01-13 21:25 | Progress Note ---
DATE 01/13/2017 HISTORY The patient was not having adequate pain relief from his intravenous morphine and his oral oxycodone late yesterday evening. The patient was also experiencing hallucinations from the morphine. Intravenous morphine and oxycodone were discontinued at that time. Intravenous Dilaudid and intravenous Toradol were started. The oral methadone which the patient was receiving prior to this hospitalization was also resumed at that time. Several hours later it was reported the patient did have much better pain relief with the intravenous Dilaudid and the intravenous Toradol. His pain relief from the intravenous Dilaudid and intravenous Toradol is not as good today as it was late yesterday evening when it was first started. The patient did have some brief episodes of supraventricular tachycardia yesterday which converted when the patient coughed. The patient had a longer more sustained episode of supraventricular tachycardia at approximately 0400 hours this morning. This did ultimately convert with vagal maneuvers. The patient then had another episode of supraventricular tachycardia with heart rate in the 160 to 180 beats per minute range at approximately 0700 hours this morning which did not respond to vagal maneuvers. Dr. Gusman was consulted at this time. The patient was seen by Dr. Gusman. Adenosine 6 mg was given intravenously without successful conversion of the supraventricular tachycardia. Metoprolol 5 mg intravenously was then given which did slow the heart rate down to a rate in the 80s. The patient was then started on sotalol 40 mg p.o. b.i.d. before meals. The patient was seen in consultation by Dr. Wayne Prater for an oncology consultation at approximately [address] Prater is recommending the patient be transferred to [facility] tomorrow morning to begin to receive some chemotherapy for treatment of his metastatic adenocarcinoma. Dr. Prater has talked with the patient and of the patient about this. The patient continues to have a productive cough. The patient continues to receive respiratory therapy treatment every four hours. The oxygen saturation of the patient has remained stable. The patient does have an oxygen saturation of 99% to 100% on 4 liters of oxygen by nasal cannula. The patient does remain in the intensive care unit. The patient continues to receive intravenous Rocephin and intravenous azithromycin. This was started for treatment of possible postobstructive pneumonia at the left lung. PHYSICAL EXAMINATION VITAL SIGNS: Temperature is 98.3 degrees oral. Pulse is 85. Respiratory rate is 22. Oxygen saturation is 99% on oxygen at 4 liters per minute by nasal cannula. CHEST: Breath sounds are decreased at the left chest cavity compared to the right. There is no wheezing at auscultation of the chest today. The patient does have a PowerPort Vascular Access Device in place at the right anterior chest at the right infraclavicular area. LABORATORY DATA Culture results of a sputum specimen submitted on 01/11/2017 are still pending. White blood cell count is 9600 today. Hemoglobin is 9.9. Hematocrit is 30.1. Serum sodium is 129. Serum chloride is 89. Serum potassium is 4.1. Serum creatinine is 0.7. TSH is 5.04 which is elevated. IMAGING DATA The patient did have a chest x-ray performed today. The chest x-ray shows extensive opacification of the left lung with an elevated left hemidiaphragm. There is little change since the previous chest x-ray. There is extensive infiltrate throughout the left chest and extensive chronic lung changes at the right lung. The patient does have a right-sided PowerPort Vascular Access Device in place. TREATMENT I did attempt to remove some more left pleural effusion fluid today with the PleurX pleural catheter which was placed at the time of the operation performed on 01/09/2017. Quite a bit of fluid was able to be removed from the left pleural cavity with the PleurX pleural catheter in the operating room after it was placed on 01/09/2017. I was only able to get a few drops of pleural effusion fluid to come out through the PleurX pleural catheter when it was connected to a suction catheter today. The PleurX pleural catheter does not appear to be functioning well at the present time for some reason. IMPRESSION 1. Moderately differentiated adenocarcinoma demonstrated by endobronchial biopsies performed at the left upper lobe and left lower lobe at flexible bronchoscopy on 01/08/2017. 2. Malignant left pleural effusion. 3. Left upper lobe collapse at the left lung demonstrated on 12/31/2016 CT scan of the chest. The CT scan of the chest does show occlusion at the left upper lobe bronchus with a cutoff sign. There is also compressive atelectasis at most of the left lung demonstrated on the 12/31/2016 CT scan. 4. Metastatic disease including metastatic nodules throughout the right lung too numerous to count, a mass at the anterior mediastinum, a lytic lesion at the inferior aspect of the left scapula and a metastasis at the right fourth posterior rib demonstrated on 12/31/2016 CT scan of the chest. 5. Small bilateral adrenal metastases and lytic bone lesions in the pelvis suspicious for metastases demonstrated on CT scan of the abdomen and pelvis on 01/01/2017. No obvious primary malignancy is seen in the abdomen or pelvis on this CT scan. 6. Severe pain at the left shoulder and right hip probably associated with lytic bone metastases at the left scapula and right hip demonstrated on the CT scans. 7. Chronic obstructive pulmonary disease. 8. Nicotine dependence. 9. Supraventricular tachycardia. 10. Anemia which is stable. 11. Leukocytosis which is improved today. 12. Hyponatremia which is improved today. 13. Cirrhosis. 14. Hepatitis C liver disease. 15. Chronic pain syndrome. 16. Insomnia. 17. Gastroesophageal reflux disease. 18. Hypertension. PLAN 1. Transfer patient to [facility] tomorrow morning to begin chemotherapy treatment under the direction of Dr. Wayne Prater. Dr. Prater would like to have the patient admitted to the hospitalist service with consultation with Dr. Prater for chemotherapy treatment. 2. Continue pain control with intravenous Dilaudid, intravenous Toradol and oral methadone. 3. Continue respiratory therapy treatments and oxygen administration to support the pulmonary status of the patient. 4. Continue antibiotics with intravenous Rocephin and azithromycin for treatment of possible postobstructive pneumonia at the left lung. MTDD
[2017-01-13] MEDS: ZOLPIDEM 5 MG TABLET PO SCH (21:47)
[2017-01-13] MEDS: AMITRIPTYLINE 50 MG TABLET PO SCH (21:47)
[2017-01-14] MEDS: HYDROMORPHONE 2 MG/ML INJECTION IVP PRN ×3 (01:24→06:45)
[2017-01-14] MEDS: ALBUTEROL/IPRATROPIUM 2.5mg-0.5mg/3ml NEB AEROSOL SCH ×2 (03:44→07:36)
[2017-01-14 04:49] VITALS: TEMP 98.3
[2017-01-14] MEDS: METHADONE 10 MG TABLET PO PRN (04:52)
[2017-01-14] MEDS: SOTALOL 80 MG TABLET PO SCH (06:01)
[2017-01-14] MEDS: CEFTRIAXONE 1 G in NS 100 ML IV SCH (08:25)
[2017-01-14] MEDS: AZITHROMYCIN IV 500 MG in NS 250ml 250 ML IV SCH (09:16)
[2017-01-14 09:37] VITALS: BP 155/97; PULSE 90; RESP 38; O2SAT 95
--- NOTE | 2017-01-14 13:45 | Progress Note ---
DATE 01/14/2017 HISTORY The patient was seen in consultation at approximately [address] Wayne Prater as described in my 01/13/[address] note. [address]. Prater did request at that time that the patient be transferred to [facility] on 01/14/2017 to begin receiving chemotherapy. The patient has been stable overnight last night. Pulmonary status remains stable. The patient has continued to receive respiratory therapy treatments. Oxygen saturation is 95% on oxygen at 4 liters per minute by nasal cannula. The patient is receiving intravenous Toradol and intravenous Dilaudid for pain control of metastatic bone lesions at the left scapula and right hip. The supraventricular tachycardia is well controlled with the sotalol. The patient continues to receive intravenous Rocephin and Zithromax for possible postobstructive pneumonia at the left lung. The plan to transfer the patient to [facility] for chemotherapy has been discussed with the patient and he does wish to do this. PHYSICAL EXAMINATION VITAL SIGNS: Pulse is 93. Respiratory rate is 20. Blood pressure is 138/95. Oxygen saturation is 95% on oxygen at 4 liters per minute by nasal cannula. CHEST: Breath sounds are decreased at the left chest. Right lung sounds are clear. There is no wheezing at this time. LABORATORY DATA Culture of sputum specimen submitted on 01/11/2017 has grown out Haemophilus influenza and normal respiratory [place]. IMPRESSION 1. Moderately differentiated adenocarcinoma demonstrated by endobronchial biopsies performed at the left upper lobe and left lower lobe at flexible bronchoscopy on 01/08/2017. 2. Malignant left pleural effusion. 3. Left upper lobe collapse at the left lung demonstrated on 12/31/2016 CT scan of the chest. The CT scan of the chest does show occlusion of the left upper lobe bronchus with a cutoff sign. There is also compressive atelectasis at most of the left lung demonstrated on the 12/31/2016 CT scan. 4. Metastatic disease including metastatic nodules throughout the right lung too numerous to count, mass at left anterior mediastinum, a lytic lesion at the inferior aspect of the left scapula and a metastases at the right fourth posterior rib demonstrated on 12/31/2016 CT scan of the chest. 5. Small bilateral adrenal metastases and lytic bone lesions in the pelvis suspicious for metastases demonstrated on CT scan of the abdomen and pelvis on 01/01/2017. No obvious primary malignancy is seen in the abdomen or pelvis on the CT scan. 6. Severe pain at the left shoulder and right hip probably associated with lytic bone metastases at the left scapula and right hip demonstrated on the CT scans. 7. Chronic obstructive pulmonary disease. 8. Nicotine dependence. 9. Possible postobstructive pneumonia at the left lung. 10. Supraventricular tachycardia which is well controlled at this time. 11. Anemia. 12. Hyponatremia. 13. Cirrhosis. 14. Hepatitis C liver disease. 15. Chronic pain syndrome. 16. Insomnia. 17. Gastroesophageal reflux disease. 18. Hypertension. PLAN The patient is being transferred to [facility] this morning to the MICU under the care of the hospitalist service. The patient has been accepted in transfer by Dr. Sarah Darby. Dr. Prater will be consulted to provide oncology care for the patient when the patient is admitted at [facility]. Dr. Prater does plan to begin chemotherapy for the patient. MTDD
--- NOTE | 2017-01-16 11:31 | XRay Report ---
Indication: MALIGNANT LT PLEURAL EFFUSION (POWER PORT) PROCEDURE: XR portacath w fluoro w cxr 1v: Encounter: Initial Comparison: January 01, 2017 Findings: New right internal jugular approach central venous port catheter with the tip difficult to discretely visualize. It appears to project over the mid to lower SVC. No pneumothorax. Increasing interstitial prominence in the right lung. Continued large left pleural effusion with evidence of left upper lobe collapse. Heart size is obscured by the effusion. Impression: New right IJ port catheter without evidence of pneumothorax. .
--- NOTE | 2017-01-17 10:32 | Discharge Summary ---
DISCHARGE DIAGNOSES 1. Moderately differentiated adenocarcinoma demonstrated by endobronchial biopsies performed at the left upper lobe and left lower lobe at flexible bronchoscopy on 01/08/2017. 2. Malignant left pleural effusion. 3. Left upper lobe collapse at the left lung demonstrated on 12/31/2016 CT scan of the chest. The CT scan of the chest does show occlusion of the left upper lobe bronchus with a cutoff sign. 4. Compressive atelectasis at most of the left lung demonstrated on the 2016 CT scan. 5. Possible postobstructive pneumonia at the left lung. 6. Metastatic disease including metastatic nodules throughout the right lung too numerous to count, mass at anterior mediastinum, lytic lesion at inferior aspect of left scapula, and metastasis at the right fourth posterior rib demonstrated on 12/31/2016 CT scan of the chest. 7. Small bilateral adrenal metastases and lytic bone lesions in the pelvis suspicious for metastases demonstrated on CT scan of the abdomen and pelvis on 01/01/2017. 8. Severe pain at the left shoulder and right hip probably associated with lytic bone metastases at the left scapula and right hip demonstrated on the CT scans. 9. Chronic obstructive pulmonary disease. 10. Nicotine dependence. 11. Supraventricular tachycardia. 12. Anemia. 13. Hyponatremia. 14. Cirrhosis. 15. Hepatitis C liver disease. 16. Chronic pain syndrome. 17. Insomnia. 18. Gastroesophageal reflux disease. 19. Hypertension. OPERATIONS 1. Flexible bronchoscopy with washings and biopsies on 01/08/2017. 2. Placement of left PleurX pleural catheter and implantation of PowerPort vascular access device on 01/09/2017. 3. Esophagogastroduodenoscopy on 01/11/2017. CONSULTS 1. Dr. Joesph Gusman 2. Dr. Wayne Prater HOSPITAL COURSE This patient was admitted to [facility] by Dr. Benson on 01/08/2017. History and physical examination findings at the time of admission to the hospital can be found in the dictated admission history and physical examination report. The patient was known at the time of admission to the hospital to have a malignant left pleural effusion with atypical cells present highly suspicious for non-small cell carcinoma. The patient was known at the time of admission to the hospital to have left upper lobe collapse which could be due to an obscured left hilar mass or endobronchial mass lesions demonstrated on a 12/31/2016 CT scan of the chest. This CT scan did show occlusion of the left upper lobe bronchus with a cutoff sign. The patient was known at the time of admission to the hospital to have metastatic disease involving the anterior mediastinum, right lung, left scapula, and right fourth posterior rib demonstrated on a 12/31/2016 CT scan of the chest. The patient was known at the time of admission to the hospital to have small bilateral adrenal metastases and lytic bone lesions in the pelvis suspicious for metastases demonstrated on a CT scan of the abdomen and pelvis performed on . The patient was known at the time of admission to the hospital to have additional medical problems including anemia, cirrhosis, hepatitis C liver disease, nicotine dependence, chronic pain syndrome, insomnia, gastroesophageal reflux disease, and hypertension. The patient did go to the operating room on 01/08/2017. The patient did undergo flexible bronchoscopy with washings and biopsies. Details of the operative findings can be found in the dictated operative report. The patient did tolerate the operation well. The cytology report on washings performed at the time of this flexible bronchoscopy procedure did show a diagnosis of adenocarcinoma. The pathology report on endobronchial biopsies performed at the left upper lobe and left lower lobe at the time of the operation showed moderately differentiated adenocarcinoma. The patient did go back to the operating room and undergo placement of a left PleurX pleural catheter and implantation of a PowerPort vascular access device by Dr. Benson on 01/09/2014 at [facility]. When the patient did go to the recovery room following this operation, he did require oxygen administration at 15 liters per minute by nonrebreathing mask to maintain an adequate oxygen saturation level. The patient did undergo a portable upright chest x-ray in the recovery room at this time. The chest x-ray showed no pneumothorax. The chest x-ray did show increasing interstitial prominence at the right lung. There was a continued large left pleural effusion with evidence of left upper lobe collapse demonstrated on the chest x-ray. The chest x-ray did show the new PowerPort vascular access device, which had just been placed. Patient was given an IPPB with aerosol breathing treatment in the recovery room. The patient did cough up a large mucous plug with this breathing treatment, and this did seem to improve his oxygenation after that. Because of the pulmonary status of the patient, he was transferred from the recovery room to the Intensive Care Unit. The patient remained in the intensive care unit on 01/10/2017. The patient continued to receive IPPB with albuterol breathing treatments in the intensive care unit. His oxygen administration was able to be weaned down to 3 liters per minute by nasal cannula by 01/10/2017. The patient did have an oxygen saturation level of 100% on oxygen administered at 3 liters per minute by nasal cannula on 01/10/2017. The patient did continue to cough up large amounts of mucus. He continued to receive respiratory therapy treatments as often as every four hours. The patient was having quite a bit of pain at the bone metastasis at the left scapula and the bone metastasis at the right hip. He was using intravenous morphine and oral oxycodone both in an attempt to get pain control. The patient did rate his pain as 10 out of 10. The patient did have bilateral wheezing at examination of the chest. Breath sounds are markedly diminished on the left side. Dr. Benson did attempt to aspirate some more fluid from the left pleural space using the PleurX pleural catheter. The patient had been able to have quite a bit of fluid removed from the left pleural space with the PleurX pleural catheter at the time of placement of this catheter on the previous day. Only a few milliliters of fluid were able to be aspirated from the left pleural space on the morning of 01/10/2017. It was thought that perhaps there had not been a lot of reaccumulation of fluid in the pleural space since all of the pleural fluid had been removed with the PleurX catheter on the previous day. It was thought that the PleurX catheter might be in a small loculated pleural effusion, which did not communicate with the rest of the pleural cavity. Respiratory Therapy with IPPB, bronchodilators, incentive spirometry, and oxygen administration was continued. Pain control was continued. The pathology report on endobronchial biopsies showing adenocarcinoma had contained a diagnostic comment that the pattern of immunoperoxidase staining was suggestive of a primary neoplasm arising from the upper gastrointestinal tract. There was a similar comment on analysis of the cytology fluid from the thoracentesis procedure performed on the previous week. Plans were being made at this time to have the patient undergo esophagogastroduodenoscopy on the following day to look for any primary neoplasm at the upper gastrointestinal tract. The patient did remain in the Intensive Care Unit on 01/11/2017. He continued to have quite a bit of pain at the lytic metastases at the left scapula and the right hip. The patient continued to receive intravenous morphine for pain control. The patient continued to cough up quite a bit of mucus out of his lungs. A sample of this mucous was collected on 01/11/2017 and submitted for sputum culture. The patient continued to receive IPPB with bronchodilator treatments. Oxygen saturation was 100% with the patient receiving oxygen at 4 liters per minute by nasal cannula at this time. The patient continued to have some bilateral wheezing at auscultation of the chest. Lung sounds were decreased on the left side. White blood cell count was 14,300. Hemoglobin was 9.3. Hematocrit was 28.6. Serum sodium was 125. Serum chloride was 87. Serum potassium was 4.8. Serum creatinine was 0.9. The leukocytosis was noted. It was thought that perhaps the patient had some postobstructive pneumonia at the left lung. Dr. Benson did talk with Mitchell Connell from Pharmacy regarding recommendations for antibiotic treatment of the patient for this possible postobstructive pneumonia at the left lung. The patient was started on treatment with Rocephin 1 gram IV daily and azithromycin 500 mg IV daily on 01/11/2017. There was also a concern about the hyponatremia. Dr. Benson did talk with Mitchell Connell from the Pharmacy Department about changing IV fluids. The IV fluids were changed to normal saline at 40 mL per hour to attempt to improve the hyponatremia. The patient did then undergo esophagogastroduodenoscopy on 01/11/2017. No obvious primary malignancy was seen at the upper gastrointestinal tract at this procedure. The patient did have some retained solid food contents in the stomach at this procedure. There was no evidence of any gastric outlet obstruction. The retained solid food contents in the stomach did compromise the ability to see all of the gastric mucosa. The gastric mucosa which was visualized appeared normal. The esophageal and duodenal mucosa appeared normal. Respiratory therapy treatments were continued. Pain control was continued with intravenous morphine. The patient had earlier been scheduled to see Dr. Ramey on an outpatient basis at his office at [place] on 01/12/2017 for an oncology consultation. It was anticipated at this time on 01/11/2017 that we would probably have Dr. Ramey see the patient in the hospital for the oncology consultation. The patient remained in the Intensive Care Unit on 01/12/2017. He continued to receive intravenous morphine and oxycodone by mouth for treatment of pain at the left shoulder and right hip thought to be associated with metastases. The patient continued to receive respiratory therapy treatments. He continued to have a productive cough. The patient did refuse the IPPB with bronchodilator treatment. Treatment was, therefore, switched to aerosol with bronchodilator treatment with use of Acapella every four hours. The patient continued to receive oxygen at 4 liters per minute by nasal cannula. Oxygen saturation was 98% with the patient receiving oxygen at 4 liters per minute by nasal cannula. Breath sounds were decreased at the left chest. There was less wheezing at auscultation of the chest. White blood cell count was 13,400 on 01/12/2017. The patient was receiving the intravenous Rocephin and azithromycin at this time for possible obstructive pneumonia at the left lung. Sputum culture results were awaited. Respiratory therapy treatments were continued. Hemoglobin was 9.4. Hematocrit was 28.9. Serum sodium was 127. Serum potassium was 4.8. Serum chloride was 86. Serum creatinine was 0.6. The leukocytosis and the hyponatremia appeared to be improved at this time. The anemia was stable. Attempts were being made to contact Dr. Ramey at this time to let him know that the patient was hospitalized. Attempts were being made to have the patient receive an oncology consultation at the hospital. It was reported late on the evening of 01/12/2017 that the patient was not having adequate pain relief from the intravenous morphine and oral oxycodone. The patient was also experiencing some hallucinations from the morphine at this time. The intravenous morphine and oxycodone were discontinued at this time late on the evening of 01/12/2017. Intravenous Dilaudid and intravenous Toradol were started. The oral methadone, which the patient had been receiving prior to this hospitalization, was also resumed at this time. Several hours later it was reported that the patient did have much better pain relief with the intravenous Dilaudid and intravenous Toradol. The patient did have several brief episodes of supraventricular tachycardia on 01/12/2017, which converted when he coughed. It was reported on the morning of 01/13/2017 that the pain relief from the intravenous Dilaudid and intravenous Toradol was not as good as it had been on the previous evening. The patient did have a longer, more sustained episode of supraventricular tachycardia at approximately 0400 hours on the morning of 01/13. This did ultimately convert with vagal maneuvers. The patient then had another episode of supraventricular tachycardia with a heart rate in the 160s to 180 beats per minute range at approximately 0700 hours on the morning of 01/2017. This did not respond to vagal maneuvers. Dr. Gusman was consulted at this time. The patient was seen by Dr. Gusman. Adenosine 6 mg was given intravenously without successful conversion of the supraventricular tachycardia. Metoprolol 5 mg intravenously was then given which did slow the heart rate down to a rate in the 80s. The patient was then started on sotalol 40 mg p.o. b.i.d. with meals. The patient continued have a productive cough. He continued to receive respiratory therapy treatment every four hours. The oxygen saturation of the patient remained stable. The patient did have an oxygen saturation of 99% to 100% on 4 liters of oxygen per minute administered by nasal cannula. The patient remained in the Intensive Care Unit. The patient continued to receive intravenous Rocephin and intravenous azithromycin for treatment of possible postobstructive pneumonia at the left lung. Culture results on the sputum specimen submitted on 01/11/2017 were still pending at this time. White blood cell count was 9600. Hemoglobin was 9.9. Hematocrit was 30.1. Serum sodium was 129. Serum chloride was 89. Serum potassium was 4.1. Serum creatinine was 0.7. TSH was 5.04, which was elevated. The anemia was stable. The leukocytosis was resolved. The hyponatremia was improving. The patient did have a chest x-ray performed on 01/13/2014. The chest x-ray showed extensive opacification at the left lung with an elevated left hemidiaphragm. There was little change since the previous chest x-ray performed on 01/09/2017. There was an extensive infiltrate throughout the left chest and extensive chronic lung changes at the right lung. Dr. Benson did again attempt to remove some more left pleural effusion fluid on 01/13/2017 using the PleurX pleural catheter. Quite a bit of fluid had been able to be removed from the left pleural cavity with the PleurX pleural catheter in the operating room after it was placed on 01/09/2017. Dr. Benson was only able to get a few drops of pleural effusion fluid to come out through the PleurX pleural catheter on 01/13/2017. The PleurX pleural catheter did not appear to be functioning well at this time for some reason. The patient was seen in consultation by Dr. Wayne Prater for an oncology consultation at approximately 1700 hours on 01/13/2017. Dr. Wayne Prater did see the patient for Dr. Ramey. Dr. Prater did recommend that the patient be transferred Via [facility] on the following morning to begin receiving some chemotherapy for treatment of his metastatic adenocarcinoma. Dr. Prater did talk with both the patient and his about this at the time of his consultation on 01/13/2017. Pain control with intravenous Dilaudid, intravenous Toradol, and oral methadone was continued. Respiratory therapy treatments and oxygen administration was continued. Antibiotic treatment with intravenous Rocephin and azithromycin was continued. The condition of the patient was stable on the morning of 01/14/2017. The patient continued to receive respiratory therapy treatments. Oxygen saturation was 95% on oxygen at 4 liters per minute by nasal cannula. The patient was receiving intravenous Toradol and intravenous Dilaudid for pain control of metastatic bone lesions at the left scapula and right hip at this time. The supraventricular tachycardia was well controlled with the sotalol at this time. The patient continued to receive intravenous Rocephin and Zithromax for possible postobstructive pneumonia at the left lung. It was now reported that culture of the sputum specimen submitted three days earlier was growing out Haemophilus influenzae and normal respiratory [place]. The patient was transferred from the Intensive Care Unit at [facility] to [facility] to the MICU under the care of the hospitalist service on the morning of 01/14/2017. The patient was accepted in transfer by Dr. Sarah Darby. The plan was for Dr. Wayne Prater to be consulted at the time of admission of the patient to [facility] to provide oncology care for the patient and begin chemotherapy for the patient. [facility]
== END 2017-01-14 09:50 | disposition short-term general hospital (02) | DRG 181 ==
LOC: SUR 10:28 → SRG 16:45 → CCU 01-09 18:12
PROVIDERS: ADMIT Surgery; ATTEND Surgery
PROC: END.EGD (2017-01-11 11:50)